=== PATIENT | male | born 1990 | race African-American/Black ===

== ENCOUNTER 2016-10-26 15:22 | Emergency (ER) | payer OTHER ==
[~2016-10-26] VITALS: Ht 175.3 cm; Wt 84.1 kg
[~2016-10-26 15:22] MED LIST: GENTAMICIN EYE D5 ML OP; GENTAMICIN OPTHA3 GM OD; NO HOME MEDICATIONS; PREDNISONE20 MG PO; PROAIR HFA0.09 MG/AC IH; VENTOLIN0.09 MG IH
[2016-10-26 15:25] VITALS: BP 127/65; TEMP 98
[2016-10-26 16:51] VITALS: PULSE 72
[2016-10-29] MEDS ORDERED: AMOXICILLIN 50500 MG PO (12:37)
== END 2016-10-26 16:52 | disposition home or self-care (01) ==
LOC: COL.ER 15:22
DX: J02.9 Acute pharyngitis, unspecified (principal)

== ENCOUNTER 2017-04-23 07:52 | Emergency (ER) | payer OTHER ==
[~2017-04-23] VITALS: Ht 175.3 cm; Wt 84.1 kg
[~2017-04-23 07:52] MED LIST changes: +AMOXICILLIN 50500 MG PO
[2017-04-23 07:59] VITALS: TEMP 98.8
[2017-04-23] MEDS ORDERED: PROAIR HFA0.09 MG/AC IH ×2 (08:06→09:26)
[2017-04-23 08:22] LABS: BASO % 0.3 % (0.0-2.0); EOS # 0.4 (0.0-0.7); EOS % 6.4 % (0-4.0); GRAN % 50.7 % (42.2-75.2); HEMATOCRIT 42.9 % (42.0-52.0); HEMOGLOBIN 14.6 g/dl (13.5-18.0); LYMPH # 2.1 (1.2-3.4); LYMPH % 35.6 % (20.0-51.0); MEAN CELL VOLUME 89 fl (80.0-100.0); MEAN CORPUSCULAR HEMOGLOBIN 30 pg (27.0-31.0); MEAN CORPUSCULAR HGB CONC 34 g/dl (33.0-37.0); MEAN PLATELET VOLUME 9.6 fl (7.4-10.4); MONO # 0.4 (0.1-0.6); MONO % 6.7 % (1.7-9.3); PLATELET COUNT 165 K/mm3 (130-400); RED BLOOD COUNT 4.85 M/mm3 (4.20-5.60); REDCELL DISTRIBUTION WIDTH-CV 12.4 % (11.5-14.5); WHITE BLOOD COUNT 5.9 K/mm3 (4.8-10.8)
[2017-04-23 08:33] LABS: ADJUSTED CALCIUM 8.5 mg/dL (8.4-10.2); ALBUMIN 4.1 gm/dL (3.5-5.0); BILIRUBIN,TOTAL 0.7 mg/dL (0.0-1.0); CALCIUM 8.6 mg/dL (8.4-10.2); CREATININE, serum 1.17 mg/dL (0.66-1.25); POTASSIUM 3.3 mmol/L (3.4-5.0); TOTAL PROTEIN 7.3 gm/dL (6.4-8.2)
[2017-04-23] MEDS ORDERED: PREDNISONE20 MG PO (09:24)
[2017-04-23 09:44] VITALS: BP 121/83; PULSE 91
== END 2017-04-23 10:02 | disposition home or self-care (01) ==
LOC: COL.ER 07:52
PROVIDERS: Nurse Practitioner
DX: J45.901 Unspecified asthma with (acute) exacerbation (principal); F17.210 Nicotine dependence, cigarettes, uncomplicated
CPT/HCPCS: J2930

== ENCOUNTER → 2017-08-10 | Outpatient (CLI) | payer OTHER | LOC: COL.PUL 14:20 | DX: J45.909 Unspecified asthma, uncomplicated (principal) ==

== ENCOUNTER 2018-05-29 21:19 | Emergency (ER) | payer OTHER | END 2018-05-29 21:45 | disposition left against medical advice (07) | LOC: COL.ER 21:19 | DX: Z72.9 Problem related to lifestyle, unspecified (principal) ==

== ENCOUNTER 2019-05-19 15:55 | Emergency (ER) | payer OTHER ==
[~2019-05-19] VITALS: Ht 175.3 cm; Wt 88.6 kg
[2019-05-19 15:59] VITALS: TEMP 98.7
[2019-05-19 17:23] VITALS: BP 104/78; PULSE 73
== END 2019-05-19 17:26 | disposition home or self-care (01) ==
LOC: COL.ER 15:55
DX: S06.0X0A Concussion without loss of consciousness, initial encounter (principal); J45.909 Unspecified asthma, uncomplicated; W50.1XXA Accidental kick by another person, initial encounter; Y92.69 Other specified industrial and construction area as the place of occurrence of the external cause; Y99.0 Civilian activity done for income or pay

== ENCOUNTER 2019-05-27 08:12 | Outpatient (RCR) | payer OTHER | END 2019-08-25 | disposition home or self-care (01) | LOC: WSOH | DX: S06.0X0A Concussion without loss of consciousness, initial encounter (principal); S00.83XA Contusion of other part of head, initial encounter; W50.1XXA Accidental kick by another person, initial encounter; Y93.89 Activity, other specified; Y92.89 Other specified places as the place of occurrence of the external cause; Y99.0 Civilian activity done for income or pay; J45.909 Unspecified asthma, uncomplicated; Z79.899 Other long term (current) drug therapy; Z88.6 Allergy status to analgesic agent ==

== ENCOUNTER 2020-01-07 13:15 | Emergency (ER) | payer OTHER ==
[~2020-01-07] VITALS: Ht 175.3 cm; Wt 88.6 kg
[2020-01-07 13:19] VITALS: TEMP 97.8
[2020-01-07 14:05] LABS: BASO % 0.8 % (0.0-2.0); EOS # 0.6 (0.0-0.7); EOS % 11.2 % (0-4.0); GRAN # 2.1 (1.4-6.5); GRAN % 41.6 % (42.2-75.2); HEMATOCRIT 43.7 % (42.0-52.0); LYMPH # 1.9 (1.2-3.4); LYMPH % 37.9 % (20.0-51.0); MEAN CELL VOLUME 87 fl (80.0-100.0); MEAN CORPUSCULAR HEMOGLOBIN 30 pg (27.0-31.0); MEAN CORPUSCULAR HGB CONC 34 g/dl (33.0-37.0); MEAN PLATELET VOLUME 9.6 fl (7.4-10.4); MONO # 0.4 (0.1-0.6); MONO % 7.9 % (1.7-9.3); PLATELET COUNT 214 K/mm3 (130-400); REDCELL DISTRIBUTION WIDTH-CV 12.4 % (11.5-14.5)
[2020-01-07 14:10] LABS: ALBUMIN 4.3 gm/dL (3.5-5.0); BILIRUBIN,TOTAL 0.2 mg/dL (0.0-1.0); CALCIUM 9.1 mg/dL (8.4-10.2); POTASSIUM 4.2 mmol/L (3.4-5.0)
[2020-01-07 14:42] VITALS: BP 132/78; PULSE 67
== END 2020-01-07 14:43 | disposition home or self-care (01) ==
LOC: COL.ER 13:15
PROVIDERS: Emergency Medicine
DX: R53.81 Other malaise (principal)

== ENCOUNTER 2021-04-14 20:21 | Emergency (ER) | payer BC ==
[~2021-04-14] VITALS: Ht 175.3 cm; Wt 86.4 kg
[2021-04-14 20:27] VITALS: TEMP 97.8
[2021-04-14 22:05] VITALS: BP 122/64; PULSE 85
== END 2021-04-14 22:05 | disposition home or self-care (01) ==
LOC: COL.ER 20:21
DX: S61.412A Laceration without foreign body of left hand, initial encounter (principal); M62.82 Rhabdomyolysis; W26.8XXA Contact with other sharp object(s), not elsewhere classified, initial encounter